=== PATIENT | male | born 1950 | race Caucasian/White ===

== ENCOUNTER 2016-06-14 18:28 | Emergency (ER) | payer MEDICARE, BC ==
[~2016-06-14] VITALS: Ht 193 cm; Wt 150.8 kg
[~2016-06-14 18:28] MED LIST: FURO1TAB93 PO; LEVO.025 PO; LEXA20TA PO; SIMV40TA OR
[2016-06-14 18:35] VITALS: BP 170/91; PULSE 83; RESP 16; TEMP 99.3; O2SAT 94
[2016-06-14] MEDS ORDERED: LEXA20TA PO (18:45)
[2016-06-14] MEDS ORDERED: VENTAER INH (18:45)
[2016-06-14] MEDS ORDERED: TETANUS/DIPHTHERIA TOXOID ADULT 0.5 ML VIAL IM ONE (18:45)
[2016-06-14] MEDS ORDERED: ATOR10TA15 PO (18:45)
[2016-06-14] MEDS ORDERED: BP MEDS (18:45)
[2016-06-14] MEDS ORDERED: IBUP800T23 PO (19:09)
--- NOTE | 2016-06-14 19:10 | PD ---
HPI Chief Complaint: Laceration/Skin Injury Time Seen by Provider: 18:35 Travel History International Travel<30 days: No Contact w/Intl Traveler<30days: No Traveled to known affect area: No History of Present Illness HPI Patient is a 66-year-old male who presented to emergency department for evaluation of a laceration to his right ankle. Patient sustained a laceration while cutting ham at home for dinner tonight. He is uncertain when his last tetanus vaccination was. He denies any significant pain. PFSH Past Medical History Blood Disorders: No Cancer: No Cardiovascular Problems: Yes (htn on meds) High Cholesterol: Yes Chest Pain: Yes Diabetes: No Diminished Hearing: No Genitourinary: No Hypertension: Yes Implanted Vascular Access Dvce: No Musculoskeletal: No Neurologic: Yes Psychiatric: No Reproductive: No Respiratory: Yes (asthma) Sleep Apnea: Yes Tetanus Vaccination: Unknown Past Surgical History Appendectomy: Yes Tonsillectomy: Yes Other Surgery: Yes (NEURO FIBROMA SX TIMES 2 ) Social History Alcohol Use: No (IN RECOVERY) Tobacco Use: No Substance Use: No Allergies-Medications (Allergen,Severity, Reaction): Uncoded Allergies: NON-IODIZING CAT SCAN DYE (Allergy, Unknown, 06/14/16) . Reported Meds & Prescriptions Reported Meds & Active Scripts Active Ibuprofen 800 Mg Tab 800 Mg PO Q6HR PRN Reported [Bp Meds] Ventolin Hfa 18 GM Inh (Albuterol Sulfate) 90 Mcg/Act Aer 1 Puff INH Q4H PRN Atorvastatin (Atorvastatin Calcium) 10 Mg Tab 10 Mg PO HS Lexapro (Escitalopram Oxalate) 20 Mg Tab 20 Mg PO DAILY Review of Systems Except as stated in HPI: all other systems reviewed are Neg Skin: Positive Other (laceration) Physical Exam Narrative GENERAL: Well-nourished, well-developed patient. SKIN: Warm and dry. 1 m laceration to the anterior right ankle, superficial HEAD: Normocephalic. EYES: No scleral icterus. No injection or drainage. NECK: Supple, trachea midline. No JVD or lymphadenopathy. CARDIOVASCULAR: Regular rate and rhythm without murmurs, gallops, or rubs. RESPIRATORY: Breath sounds equal bilaterally. No accessory muscle use. GASTROINTESTINAL: Abdomen soft, non-tender, nondistended. MUSCULOSKELETAL: No cyanosis, or edema. BACK: Nontender without obvious deformity. No CVA tenderness. Data Data Last Documented VS Vital Signs Date Time Temp Pulse Resp B/P Pulse Ox O2 Delivery O2 Flow Rate FiO2 06/14/16 18:35 99.3 83 16 170/91 94 Orders Tetanus/Diphtheria Tox Adult (Tetanus/Di (06/14/16 18:45) MDM Medical Decision Making Medical Screen Exam Complete: Yes Emergency Medical Condition: Yes Interpretation(s) Vital Signs Date Time Temp Pulse Resp B/P Pulse Ox O2 Delivery O2 Flow Rate FiO2 06/14/16 18:35 99.3 83 16 170/91 94 Differential Diagnosis Laceration versus abrasion versus contusion versus other Narrative Course Patient is a 66-year-old male who presents emergency Department evaluation of a laceration to his right ankle. Patient is neurovascularly intact. Wound is superficial, 1 centimeter long, base of wound is well visualized. Please see procedure report for laceration repair. Patient was encouraged to rest, ice, elevate extremity. Patient was educated on signs and symptoms of infection. He was educated that the stitches will need to come out in approximately one week. He was encouraged to return to emergency department for any new or worsening symptoms. Patient verbalized understanding of these instructions. Patient is stable for discharge. Procedures Procedure Narrative LACERATION LOCATION: Right ankle LENGTH: 1 cm NUMBER OF STITCHES/PEDRO: 3 stitches REPAIR: The area of the laceration was prepped with Betadine and sterilely draped. The laceration was infiltrated with 1% lidocaine. The wound was copiously irrigated and explored without evidence of foreign body, tendon injury or neurovascular injury. The wound was closed using 4-0 Prolene. This was a 1 layer repair. A sterile dressing was applied. The patient was advised to keep the dressing clean and dry. Patient tolerated the procedure well. Diagnosis Primary Impression: Laceration Additional Impression: Tetanus toxoid vaccination administered at current visit Referrals: Primary Care Physician Patient Instructions: Care For Your Stitches (ED), General Instructions, Laceration (ED), Stitches Removal (DC) Additional Instructions: Follow-up with your primary doctor Stitches will need to be removed in 7 days, this can be done in the emergency department or with a primary care physician Return to emergency department for any new or worsening symptoms Rest, ice, elevate extremity Take ibuprofen as needed and as directed for pain Med/Other Pt SpecificInfo: Prescription(s) given Scripts Ibuprofen 800 Mg [id number] Mg PO Q6HR PRN (PAIN) #40 TAB Ref 0 Prov:Fabiana Phipps 06/14/16 Disposition: 01 DISCHARGE HOME Condition: Stable Fabiana Phipps Jun 14, 2016 19:09
== END 2016-06-14 19:19 | disposition home or self-care (01) ==
LOC: PHEFT 18:28
DX: S91.011A Laceration without foreign body, right ankle, initial encounter (principal); I10 Essential (primary) hypertension; E78.00 Pure hypercholesterolemia, unspecified; J45.909 Unspecified asthma, uncomplicated; Z23 Encounter for immunization; W26.0XXA Contact with knife, initial encounter; Y99.8 Other external cause status
CPT/HCPCS: 12001; 90471; 90714